=== PATIENT | female | born 1985 | race Two or more races ===

== ENCOUNTER 2017-11-10 04:33 | Emergency (ER) | payer OTHER ==
[~2017-11-10] VITALS: Ht 165.1 cm; Wt 95.3 kg
== END 2017-11-10 19:42 | disposition home or self-care (01) ==
LOC: ER 04:33
DX: Z34.81 Encounter for supervision of other normal pregnancy, first trimester (principal); O23.31 Infections of other parts of urinary tract in pregnancy, first trimester

== ENCOUNTER 2017-11-12 20:30 | Emergency (ER) | payer OTHER ==
[~2017-11-12] VITALS: Ht 165.1 cm; Wt 95.3 kg
== END 2017-11-13 06:33 | disposition home or self-care (01) ==
LOC: ER 20:30
DX: Z34.81 Encounter for supervision of other normal pregnancy, first trimester (principal); O03.9 Complete or unspecified spontaneous abortion without complication

== ENCOUNTER 2021-03-04 11:54 | Day surgery (SDC) | payer OTHER ==
[~2021-03-04 11:54] MED LIST: FOLIC ACID20 MG PO
== END 2021-03-04 22:25 | disposition home or self-care (01) ==
LOC: CIR.AMB 11:54
PROVIDERS: ATTEND Obstetrics & Gynecology
DX: O34.31 Maternal care for cervical incompetence, first trimester (principal); Z3A.12 12 weeks gestation of pregnancy; Z20.822 Contact with and (suspected) exposure to COVID-19

== ENCOUNTER → 2021-04-10 10:11 | Outpatient (CLI) | payer OTHER | END | disposition home or self-care (01) | LOC: LAB 10:11 | PROVIDERS: ATTEND Obstetrics & Gynecology | DX: O09.72 Supervision of high risk pregnancy due to social problems, second trimester (principal) ==

== ENCOUNTER → 2021-05-08 | Outpatient (CLI) | payer OTHER | END | disposition home or self-care (01) | LOC: NST 22:45 | PROVIDERS: ATTEND Obstetrics & Gynecology | DX: Z34.82 Encounter for supervision of other normal pregnancy, second trimester (principal) ==

== ENCOUNTER 2021-07-03 09:26 | Outpatient (CLI) | payer OTHER | END 2021-07-03 10:01 | disposition home or self-care (01) | LOC: NST 09:26 | PROVIDERS: ATTEND Obstetrics & Gynecology Maternal & Fetal Medicine | DX: Z34.83 Encounter for supervision of other normal pregnancy, third trimester (principal) ==

== ENCOUNTER 2021-08-14 07:24 | Outpatient (CLI) | payer OTHER | END 2021-08-14 07:49 | disposition home or self-care (01) | LOC: NST 07:24 | PROVIDERS: ATTEND Obstetrics & Gynecology | DX: Z34.83 Encounter for supervision of other normal pregnancy, third trimester (principal) ==

== ENCOUNTER 2021-08-18 08:10 | Outpatient (CLI) | payer OTHER | END 2021-08-18 08:44 | disposition home or self-care (01) | LOC: NST 08:10 | PROVIDERS: ATTEND Obstetrics & Gynecology | DX: Z34.83 Encounter for supervision of other normal pregnancy, third trimester (principal) ==

== ENCOUNTER 2021-08-20 07:57 | Inpatient (IN) | payer OTHER ==
[~2021-08-20] VITALS: Ht 165.1 cm; Wt 98.9 kg
== END 2021-08-22 13:11 | disposition home or self-care (01) | DRG 807 ==
LOC: OB/GYN 07:57 → LDR 07:57 → OB/GYN 14:06
PROVIDERS: ADMIT Obstetrics & Gynecology; ATTEND Obstetrics & Gynecology
PROC: 10E0XZZ Delivery of Products of Conception, External Approach (ICD-10-PCS; principal; 2021-08-20)
PROC: 0UQGXZZ Repair Vagina, External Approach (ICD-10-PCS; 2021-08-20)
PROC: 4A1HXFZ Monitoring of Products of Conception, Cardiac Rhythm, External Approach (ICD-10-PCS; 2021-08-20)
DX: O71.4 Obstetric high vaginal laceration alone (principal); Z37.0 Single live birth; Z3A.37 37 weeks gestation of pregnancy

== ENCOUNTER 2023-02-17 08:33 | Outpatient (CLI) | payer OTHER | END 2023-02-17 12:03 | disposition home or self-care (01) | LOC: PRENATAL 08:33 | PROVIDERS: ATTEND Obstetrics & Gynecology Maternal & Fetal Medicine | DX: O36.80X0 Pregnancy with inconclusive fetal viability, not applicable or unspecified (principal); O09.529 Supervision of elderly multigravida, unspecified trimester; O09.219 Supervision of pregnancy with history of pre-term labor, unspecified trimester; O34.30 Maternal care for cervical incompetence, unspecified trimester; Z3A.14 14 weeks gestation of pregnancy ==

== ENCOUNTER 2023-04-05 10:50 | Day surgery (SDC) | payer OTHER ==
[2023-04-05] MEDS ORDERED: INDOMETHACIN25 MG PO (15:09)
== END 2023-04-05 18:50 | disposition home or self-care (01) ==
LOC: CIR.AMB 10:50
PROVIDERS: ATTEND Obstetrics & Gynecology Maternal & Fetal Medicine
DX: O34.32 Maternal care for cervical incompetence, second trimester (principal); Z3A.18 18 weeks gestation of pregnancy; Z20.822 Contact with and (suspected) exposure to COVID-19

== ENCOUNTER 2023-04-14 08:56 | Outpatient (CLI) | payer OTHER ==
[~2023-04-14 08:56] MED LIST changes: +INDOMETHACIN25 MG PO
== END 2023-04-14 10:24 | disposition home or self-care (01) ==
LOC: PRENATAL 08:56
PROVIDERS: ATTEND Obstetrics & Gynecology Maternal & Fetal Medicine
DX: O35.3XX0 Maternal care for (suspected) damage to fetus from viral disease in mother, not applicable or unspecified (principal); O09.219 Supervision of pregnancy with history of pre-term labor, unspecified trimester; O09.529 Supervision of elderly multigravida, unspecified trimester; O34.30 Maternal care for cervical incompetence, unspecified trimester; O99.210 Obesity complicating pregnancy, unspecified trimester; Z3A.20 20 weeks gestation of pregnancy

== ENCOUNTER 2023-05-12 04:12 | Outpatient (CLI) | payer OTHER ==
[2023-05-12] MEDS ORDERED: PRENATAL TABLE1 EAC4 PO (04:35)
[2023-05-12 06:54] LABS: MEAN CORPUSCULAR HGB CONC 32.3 g/dl (32.0-36.0); PLATELET COUNT 185 K/uL (150-450); RED BLOOD COUNT 3.51 M/uL (4.00-6.00); RED CELL DISTRIBUTION WIDTH 17.8 % (11.5-14.5)
[2023-05-12 07:01] LABS: HEMOGLOBIN 8.7 g/dL (12.0-15.00); MEAN CORPUSCULAR HEMOGLOBIN 24.7 pg (27.00-32.0)
[2023-05-12] MEDS ORDERED: FERROUS SULFAT325 MG PO (12:01)
== END 2023-05-12 12:33 | disposition home or self-care (01) ==
LOC: OBS/DEL 04:12
PROVIDERS: ATTEND Specialist
DX: O34.32 Maternal care for cervical incompetence, second trimester (principal); O09.522 Supervision of elderly multigravida, second trimester; O46.8X2 Other antepartum hemorrhage, second trimester; Z3A.24 24 weeks gestation of pregnancy

== ENCOUNTER 2023-06-09 14:57 | Outpatient (CLI) | payer OTHER ==
[~2023-06-09 14:57] MED LIST changes: +FERROUS SULFAT325 MG PO; +PRENATAL TABLE1 EAC4 PO
== END 2023-06-09 14:58 | disposition home or self-care (01) ==
LOC: PRENATAL 14:57
PROVIDERS: ATTEND Obstetrics & Gynecology Maternal & Fetal Medicine
DX: O26.849 Uterine size-date discrepancy, unspecified trimester (principal); O34.30 Maternal care for cervical incompetence, unspecified trimester; Z3A.28 28 weeks gestation of pregnancy

== ENCOUNTER 2023-07-21 09:10 | Outpatient (CLI) | payer OTHER | END 2023-07-21 09:13 | disposition home or self-care (01) | LOC: PRENATAL 09:10 | PROVIDERS: ATTEND Obstetrics & Gynecology Maternal & Fetal Medicine | DX: O26.849 Uterine size-date discrepancy, unspecified trimester (principal); O36.8199 Decreased fetal movements, unspecified trimester, other fetus; O34.30 Maternal care for cervical incompetence, unspecified trimester; Z3A.34 34 weeks gestation of pregnancy ==

== ENCOUNTER 2023-08-04 10:43 | Outpatient (CLI) | payer OTHER | END 2023-08-04 10:44 | disposition home or self-care (01) | LOC: PRENATAL 10:43 | PROVIDERS: ATTEND Obstetrics & Gynecology Maternal & Fetal Medicine | DX: O36.8199 Decreased fetal movements, unspecified trimester, other fetus (principal); O41.00X0 Oligohydramnios, unspecified trimester, not applicable or unspecified; O34.30 Maternal care for cervical incompetence, unspecified trimester; O34.40 Maternal care for other abnormalities of cervix, unspecified trimester; Z3A.36 36 weeks gestation of pregnancy ==

== ENCOUNTER 2023-08-04 12:54 | Inpatient (IN) | payer OTHER ==
[~2023-08-04] VITALS: Ht 165.1 cm; Wt 2.3 kg
[2023-08-04 14:40] LABS: URINE APPEARANCE Clear; URINE BILIRRUBIN Negative (NEGATIVE); URINE BLOOD Large; URINE COLOR Yellow; URINE GLUCOSE Negative (NEGATIVE); URINE LEUKOCYTE Large; URINE NITRATE Negative; URINE PROTEIN Trace (NEGATIVE)
[2023-08-04 14:41] LABS: URINE BACTERIA 1225.8 uL (0.0-1933); URINE EPITHELIAL CELLS 11.4 uL (0.0-38.8); URINE RBC 9.6 uL (0.0-20.8); URINE WBC 608.7 uL (0.0-23.2)
[2023-08-04 14:56] LABS: HEMOGLOBIN 11.2 g/dL (12.0-15.00); MEAN CELL VOLUME 79.8 fL (80.00-100.00); MEAN CORPUSCULAR HEMOGLOBIN 25.6 pg (27.00-32.0); MEAN CORPUSCULAR HGB CONC 32.1 g/dl (32.0-36.0); PLATELET COUNT 213 K/uL (150-450); RED BLOOD COUNT 4.39 M/uL (4.00-6.00)
[2023-08-04 15:04] LABS: BILIRUBIN TOTAL 0.47 mg/dL (0.3-1.2); CALCIUM 8.8 mg/dL (8.5-10.1); CREATININE SERUM 0.6 mg/dL (0.55-1.02); GFR 111.29; GLOBULINA 4.2 G/DL (2.4-3.5); TOTAL PROTEIN 7.2 gm/dL (6.4-8.2)
[2023-08-04 15:40] LABS: INR 0.95; PARTIAL THROMBOPLASTIN TIME 26.9 SECONDS (22.0-34.0)
[2023-08-06 03:31] LABS: HEMOGLOBIN 10.2 g/dL (12.0-15.00); MEAN CELL VOLUME 79.1 fL (80.00-100.00); MEAN CORPUSCULAR HEMOGLOBIN 25.2 pg (27.00-32.0); MEAN CORPUSCULAR HGB CONC 31.9 g/dl (32.0-36.0); PLATELET COUNT 207 K/uL (150-450); RED BLOOD COUNT 4.05 M/uL (4.00-6.00); RED CELL DISTRIBUTION WIDTH 19.8 % (11.5-14.5)
[2023-08-08] MEDS ORDERED: IBUPROFEN800 MG PO (07:58)
== END 2023-08-08 13:50 | disposition home or self-care (01) | DRG 783 ==
LOC: LDR 12:54 → O/R 12:54 → OB/GYN 12:54 → O/R 08-05 13:41 → OB/GYN 08-05 16:19
PROVIDERS: ADMIT Specialist; ATTEND Specialist
PROC: 4A1HXCZ Monitoring of Products of Conception, Cardiac Rate, External Approach (ICD-10-PCS; 2023-08-04)
PROC: 0UCC7ZZ Extirpation of Matter from Cervix, Via Natural or Artificial Opening (ICD-10-PCS; 2023-08-05)
PROC: 0UB70ZZ Excision of Bilateral Fallopian Tubes, Open Approach (ICD-10-PCS; 2023-08-05)
PROC: 10D00Z1 Extraction of Products of Conception, Low, Open Approach (ICD-10-PCS; principal; 2023-08-05 13:30)
DX: O41.03X0 Oligohydramnios, third trimester, not applicable or unspecified (principal); O34.33 Maternal care for cervical incompetence, third trimester; O60.14X0 Preterm labor third trimester with preterm delivery third trimester, not applicable or unspecified; O34.211 Maternal care for low transverse scar from previous cesarean delivery; Z30.2 Encounter for sterilization; Z37.0 Single live birth; Z20.822 Contact with and (suspected) exposure to COVID-19; Z3A.36 36 weeks gestation of pregnancy